=== PATIENT | male | born 1945 | race Asian ===

== ENCOUNTER → 2017-01-24 | Outpatient (CLI) | payer OTHER | LOC: BHFA 09:30 | PROVIDERS: ATTEND Internal Medicine Cardiovascular Disease | DX: I25.10 Atherosclerotic heart disease of native coronary artery without angina pectoris (principal) | CPT/HCPCS: 78452; 93017; A9500 ==

== ENCOUNTER → 2017-02-28 | Outpatient (CLI) | payer OTHER | DX: R13.10 Dysphagia, unspecified (principal); K21.9 Gastro-esophageal reflux disease without esophagitis; R09.89 Other specified symptoms and signs involving the circulatory and respiratory systems; R19.2 Visible peristalsis | CPT/HCPCS: 74220; 74230; 92611; G8996; G8997; G8998 ==

== ENCOUNTER → 2017-06-26 | Outpatient (CLI) | payer OTHER | LOC: BMCIMAGING 15:13 | PROVIDERS: ATTEND Internal Medicine | DX: R05 Cough (principal) ==

== ENCOUNTER → 2017-07-19 | Outpatient (CLI) | payer OTHER | LOC: FLAB 17:17 → EDSTATUS 17:28 → FIMAGING 17:29 | PROVIDERS: ATTEND Internal Medicine | DX: J18.9 Pneumonia, unspecified organism (principal) ==

== ENCOUNTER 2018-06-19 06:10 | Day surgery (SDC) | payer OTHER ==
[2018-06-19] MEDS ORDERED: DEXAMETHASONE 4 MG/ML VIAL IVP ONE (06:21)
[2018-06-19] MEDS ORDERED: ACETAMINOPHEN 325 MG TAB PO ONE (06:21)
[2018-06-19] MEDS ORDERED: ceFAZolin 2 GM/DEXTROSE 100 ML IV ONE (06:21)
[2018-06-19] MEDS ORDERED: FAMOTIDINE 20 MG TAB PO ONE (06:21)
--- NOTE | 2018-06-19 06:47 | PDANEPAE ---
ANE History of Present Illness meniscuc injury, here for knee scope ANE Past Medical History - Cardiovascular History Hx Hypertension: Yes Hx Arrhythmias: No Hx Chest Pain: No Hx Coronary Artery / Peripheral Vascular Disease: Yes Hx CHF / Valvular Disease: No Hx Palpitations: No Cardiovascular History Comment: stent placed 10yrs ago - Pulmonary History Hx COPD: No Hx Asthma/Reactive Airway Disease: No Hx Recent Upper Respiratory Infection: No Hx Oxygen in Use at Home: No Hx Sleep Apnea: No Sleep Apnea Screening Result - Last Documented: Negative - Neurologic History Hx Cerebrovascular Accident: No Hx Seizures: No Hx Dementia: No - Endocrine History Hx Diabetes: No - Renal History Hx Renal Disorders: No - Liver History Hx Hepatic Disorders: No - Neurological & Psychiatric Hx Hx Neurological and Psychiatric Disorders: No - Cancer History Hx Cancer: No - Congenital Disorder History Hx Congenital Disorders: No - GI History Hx Gastrointestinal Disorders: No - Other Health History Other Health History: none - Chronic Pain History Chronic Pain: Yes (right knee) - Surgical History Prior Surgeries: none ANE Review of Systems Review of Systems: - Exercise capacity METS (RN): 4 METS ANE Patient History - Allergies Allergies/Adverse Reactions: amoxicillin [From Augmentin] Allergy (Verified 06/18/18 14:15) Other-Enter Comments clavulanic acid [From Augmentin] Allergy (Verified 06/18/18 14:15) Other-Enter Comments - Home Medications Home medications: home medication list seen and reviewed Home Medications: Aspirin EC [Aspirin EC 81 mg (*)] 07/11/17 [Last Taken Unknown] Atorvastatin Calcium [Lipitor 20 mg (*)] 07/11/17 [Last Taken Unknown] Metoprolol Succinate Xr [Toprol Xl 25 mg (*)] 07/11/17 [Last Taken 06/18/18 22: 00] - NPO status NPO Status: no food or drink >8 hours - Anes Hx Anes Hx: slow to awaken from anesthesia - Smoking Hx Smoking Status: Former smoker - Alcohol Use Alcohol Use: None - Family Anes Hx Family Anes Hx: none Family Hx Anesthesia Complications: none ANE Labs/Vital Signs - Vital Signs Vital Signs: reviewed preoperatively; see RN documention for details Height: 165.1 cm Weight: 68.946 kg ANE Physical Exam - Airway Neck exam: FROM Mallampati Score: Class 2 Mouth exam: normal dental/mouth exam - Pulmonary Pulmonary: no respiratory distress, clear to auscultation - Cardiovascular Cardiovascular: regular rate and rhythym, no murmur, rub, or gallop - ASA Status ASA Status: II ANE Anesthesia Plan Anesthesia Plan: GA w LMA
[2018-06-19] MEDS ORDERED: BUPIVACAINE/EPI 0.5% 30 ML SDV ONE (06:49)
[2018-06-19] MEDS ORDERED: EPINEPHrine 1 MG/ML INJ ONE (06:49)
[2018-06-19] MEDS ORDERED: PROPOFOL 200 MG/20 ML VIAL ONE (06:53)
[2018-06-19] MEDS ORDERED: fentaNYL 100 MCG/2 ML INJ ONE ×2 (06:53→08:50)
[2018-06-19] MEDS ORDERED: LR 1,000 ML IV ONE (06:54)
[2018-06-19] MEDS ORDERED: LIDOCAINE 2% 100 MG/5 ML SYR ONE (06:55)
--- NOTE | 2018-06-19 07:06 | PDHPUP ---
History & Physical Update H&P update statement: This history and physical update is based on an assessment of the patient which was completed after admission or registration (within 24 hours), but prior to the surgery/procedure. H&P update: H&P reviewed & patient examined, no change in patient's condition since H&P completed
[2018-06-19] MEDS ORDERED: ePHEDrine SULFATE 25 MG/5 ML SYR ONE (07:37)
[2018-06-19] MEDS ORDERED: ONDANSETRON 4 MG/2 ML VIAL IVP PRN (08:08)
[2018-06-19] MEDS ORDERED: HYDROCODONE/APAP 5/325 TAB PO PRN (08:08)
[2018-06-19] MEDS ORDERED: ACETAMINOPHEN 500 MG TAB PO PRN (08:08)
[2018-06-19] MEDS ORDERED: fentaNYL 100 MCG/2 ML INJ IVP PRN (08:08)
[2018-06-19] MEDS ORDERED: oxyCODONE IR 5 MG TAB PO PRN (08:08)
[2018-06-19] MEDS ORDERED: NALOXONE HCL 0.4 MG/ML INJ IVP PRN (08:08)
[2018-06-19] MEDS ORDERED: PROMETHAZINE HCL 25 MG/ML INJ IVP PRN (08:08)
--- NOTE | 2018-06-19 08:08 | POSTANESTH ---
Post Anesthetic Evaluation Cardiovascular Status: Normal, Stable, Similar to Pre-Op Cond Respiratory Status: Normal, Stable, Similar to Pre-op Cond. Level of Consciousness/Mental Status: Mildly Sleepy, Arousable Pain Control: Adequate, Prn Tx Ordered Nausea/Vomiting Control: Adequate, Prn Tx Ordered Complications Possibly Related to Anesthesia: None Noted
--- NOTE | 2018-06-19 08:14 | POSTOPPROG ---
Post Op Note Date of Operation: 06/19/18 Surgeon: Izabella Lewis Anesthesiologist: dr. suh Anesthesia: GET(General Endotracheal) Pre-op Diagnosis: left knee medial meniscus tear Post-op Diagnosis: left knee meniscus tear and grade III and IV OA Indication: left knee pain and catching Procedure: Left knee scope Findings: meniscus tear and grade IV OA tibia Inf/Abcess present in the surg proc area at time of surgery?: No EBL: Minimal
[2018-06-19] MEDS ORDERED: HYDROCODONE/APAP 5/325 TAB ONE (09:59)
[2018-06-19 10:40] VITALS: BP 153/87
--- NOTE | 2018-06-25 15:46 | GOP ---
[f rep st] OPERATIVE REPORT DATE OF OPERATION: 06/19/2018 SURGEON: Tony Lewis MD ANESTHESIA: General. PREOPERATIVE DIAGNOSIS: Left knee medial meniscus tear. POSTOPERATIVE DIAGNOSIS: Left knee medial meniscus tear. PROCEDURE PERFORMED: Left knee arthroscopic partial medial meniscectomy. FINDINGS: INDICATIONS: Patient has a left medial meniscus tear noted on MRI and had tried injection and failed . Discussed risks, benefits were discussed with the patient and decided to proceed with operative in tervention. DESCRIPTION OF PROCEDURE: The patient identified in the preoperative holding area. His left lower e xtremity was marked, he was brought back to the operating room. After induction of anesthesia, he wa s prepped and draped in usual sterile fashion. A time-out was taken confirming patient, laterality, procedures, allergies, antibiotic status. We made medial and lateral parapatellar portals. Tourniqu et was inflated and I performed a diagnostic arthroscopy. The patient had no loose bodies in the sup rapatellar pouch. No loose bodies in the medial or lateral gutter. There was no significant cartila ge loss of the patellofemoral joint. At the medial femoral compartment there were some grade 2 carti rafi changes on the medial femoral condyle. There was grade 3-4 changes on the medial tibial, specif ically extreme medial under the meniscus. A posterior medial meniscus tear was noted. This was debr ided back to a stable rim using a series of cassandra and biters. This removed the meniscus tear. The notch was examined. The ACL, PCL were found to be intact. The lateral compartment was examined and found to have no osteoarthritis and no meniscus tear. Any excess fluid was removed. The incisions w ere closed in layers and the patient was placed in a sterile dressing and was brought to PACU in good condition with a well-perfused limb. The plan will be to discharge patient home, weightbearing as tolerated. Follow up in the orthopedic clinic in 7-10 days. /[id number]/MODL
== END 2018-06-19 10:34 | disposition home or self-care (01) ==
LOC: FSGY 06:10
PROVIDERS: ATTEND Orthopaedic Surgery
PROC: 0SBD4ZZ Excision of Left Knee Joint, Percutaneous Endoscopic Approach (ICD-10-PCS; principal; 2018-06-19 07:15)
DX: S83.222A Peripheral tear of medial meniscus, current injury, left knee, initial encounter (principal)
CPT/HCPCS: J0171; J0690; J1100; J2001; J2704; J3010

== ENCOUNTER → 2019-02-05 | Outpatient (CLI) | payer OTHER | LOC: BHFA 09:30 | PROVIDERS: ATTEND Internal Medicine Cardiovascular Disease | DX: Z01.810 Encounter for preprocedural cardiovascular examination (principal) | CPT/HCPCS: 78452; 93017; A9500; J2785 ==

== ENCOUNTER 2019-02-17 11:27 | Observation (INO) | payer OTHER ==
--- NOTE | 2019-02-16 16:58 | GHP ---
[f rep st] PREOP HISTORY AND PHYSICAL DATE OF ADMISSION: 02/17/2019 HISTORY: The patient is a 73-year-old male who has had progressive pain, swelling and limitations du e to left knee arthritis. His knee required a left knee arthroscopy, his knee has followed a downhil l course over time. He has tried steroid injection and viscosupplementation, as well as an certified professional midwife brace without benefit. He has pain, swelling, progressive limitation of his activities of daily nissa ng, limitations of motion and gait abnormalities. His left knee has radiographic abnormality, he has tricompartment osteoarthritis most severe in the medial compartment that is essentially [id number] and he has varus malalignment. He has had rheumatology consultation and has some elevation of infla mmatory markers demonstrating some inflammatory component to his knee symptoms. He has become limite d to the point where he would like to pursue a left total knee arthroplasty. PAST MEDICAL HISTORY: Remarkable for coronary artery disease, he had a stent placement 10 years ago, has been followed by Doctors Atul and Levon in Cardiology. He has had lumbar spine concerns an d injections. He has some elevation of cholesterol. His surgical history includes spine injections, a knee scope, left side. ALLERGIES: No known drug allergies. CURRENT MEDICATIONS: He is using atorvastatin 20 mg p.o. daily and metoprolol ER 25 mg p.o. daily. Former smoker, not currently. REVIEW OF SYSTEMS: Significant for his coronary artery disease. PHYSICAL EXAM: GENERAL: The patient is a well-developed, well-nourished male in no apparent distres s. HEAD AND NECK: Normocephalic, atraumatic. CHEST: Clear. CARDIOVASCULAR: Regular rate and rhy thm. ABDOMEN: Soft. NEUROLOGICAL: He is alert and oriented x3. EXTREMITIES: Examination of the left knee indicates an effusion. His extension is limited. His range of motion is from 10 degrees o f flexion to about 120 degrees of flexion. He has a varus malalignment. SKIN: Looks healthy. NEUR OVASCULAR: Exam appears intact. X-rays, as noted, show left knee tricompartment arthritis, severe joint space narrowing medially. IMPRESSION: Left knee arthritis. PLAN: A left total knee arthroplasty. Benefits and risks of surgery have been reviewed with the pat yang. He understands that the risks include infection, damage to blood vessel or nerve, failure or l oosening of components and possible need for revision. We have reviewed pain management strategies, as well as the rigorous nature of the recovery process. He has signed his consent form and wishes to proceed. /[id number]/MODL
[~2019-02-17 11:27] MED LIST: POVIDONE-IODINE 20 ML in SODIUM CL IRRIG SOLUTION 500 ML IRR ONE; ROPIVACAINE 0.2% 80 MG, EPINEPHrine 0.2 MG, KETOROLAC TROMETHAMINE 30 MG in SYRINGE 0 ML IU ONE; TRANEXAMIC ACID 1,000 MG in NS 100 ML IV ONE
[2019-02-17] MEDS ORDERED: DEXAMETHASONE 4 MG/ML VIAL IVP ONE (11:50)
[2019-02-17] MEDS ORDERED: GABAPENTIN 300 MG CAP PO ONE (11:50)
[2019-02-17] MEDS ORDERED: LR 1,000 ML IV ONE (11:50)
[2019-02-17] MEDS ORDERED: ceFAZolin 2 GM/DEXTROSE 100 ML IV ONE (11:50)
[2019-02-17] MEDS ORDERED: ACETAMINOPHEN 325 MG TAB PO ONE (11:50)
[2019-02-17] MEDS ORDERED: ONDANSETRON 4 MG/2 ML VIAL IVP ONE (11:50)
[2019-02-17] MEDS ORDERED: FAMOTIDINE 20 MG TAB PO ONE (11:50)
--- NOTE | 2019-02-17 12:19 | PDANEPAE ---
ANE Past Medical History - Cardiovascular History Hx Hypertension: No Hx Arrhythmias: No Hx Chest Pain: Yes Hx Coronary Artery / Peripheral Vascular Disease: Yes Hx CHF / Valvular Disease: No Hx Palpitations: No Cardiovascular History Comment: CAD, stent placed 10yrs ago. MD. HLD - Pulmonary History Hx COPD: No Hx Asthma/Reactive Airway Disease: No Hx Recent Upper Respiratory Infection: No Hx Oxygen in Use at Home: No Hx Sleep Apnea: No Sleep Apnea Screening Result - Last Documented: Negative - Neurologic History Hx Cerebrovascular Accident: No Hx Seizures: No Hx Dementia: No - Endocrine History Hx Diabetes: No Hypothyroid: No Hyperthyroid: No Obesity: no Endocrine History Comment: Pre-diabetic per PCP, managed by diet and excercise. - Renal History Hx Renal Disorders: No - Liver History Hx Hepatic Disorders: No - Neurological & Psychiatric Hx Hx Neurological and Psychiatric Disorders: No - Cancer History Hx Cancer: No - Congenital Disorder History Hx Congenital Disorders: No - GI History GERD: no Hx Gastrointestinal Disorders: No - Other Health History Other Health History: none - Chronic Pain History Chronic Pain: Yes (right knee) - Surgical History Prior Surgeries: L knee arthroscopy 06/2018. Angiogram 2017. Coronary artery stent ~2010. L knee surgery ~2003 ANE Review of Systems Review of Systems: - Exercise capacity Exercise capacity: >=4 METS, limited by disability METS (RN): 4 METS ANE Patient History - Allergies Allergies/Adverse Reactions: honey Allergy (Mild, Verified 02/11/19 11:53) Nausea lisinopril Allergy (Unknown, Verified 02/11/19 11:52) Hives amoxicillin [From Augmentin] Allergy (Verified 06/19/18 06:55) Other-Enter Comments clavulanic acid [From Augmentin] Allergy (Verified 06/19/18 06:55) Other-Enter Comments - Home Medications Home Medications: Atorvastatin Calcium [Lipitor 20 mg (*)] 07/11/17 [Last Taken 06/18/18] Metoprolol Succinate Xr [Toprol Xl 25 mg (*)] 07/11/17 [Last Taken 06/18/18] - NPO status NPO Since - Liquids (Date): 02/17/19 NPO Since - Liquids (Time): 09:00 NPO Since - Solids (Date): 02/16/19 NPO Since - Solids (Time): 21:00 - Anes Hx Anes Hx: slow to awaken from anesthesia - Smoking Hx Smoking Status: Former smoker Marijuana use: No - Alcohol Use Alcohol Use: Rarely - Family Anes Hx Family Anes Hx: neg - N/A Family Hx Anesthesia Complications: none ANE Labs/Vital Signs - Vital Signs Blood Pressure: 157/80 Heart Rate: 59 Respiratory Rate: 18 O2 Sat (%): 98 Height: 165.1 cm Weight: 70.307 kg ANE Physical Exam - Airway Neck exam: FROM Mallampati Score: Class 2 Mouth exam: normal dental/mouth exam - Pulmonary Pulmonary: no respiratory distress, no rales or rhonchi, clear to auscultation - Cardiovascular Cardiovascular: regular rate and rhythym - ASA Status ASA Status: II ANE Anesthesia Plan Anesthesia Plan: MAC, spinal Regional Anesthesia: single shot NB, adductor canal FNB Total IV Anesthesia: No
[2019-02-17] MEDS ORDERED: ceFAZolin 1 GM/5 ML SYR ONE (12:49)
--- NOTE | 2019-02-17 13:02 | PDHPUP ---
History & Physical Update H&P update statement: This history and physical update is based on an assessment of the patient which was completed after admission or registration (within 24 hours), but prior to the surgery/procedure. no change H&P update: no change in patient's condition since H&P completed (no change)
[2019-02-17] MEDS ORDERED: BUPIVACAINE/DEXTROSE 7.5MG/ML 2 ML SPINAL AMP SP ONE (13:24)
[2019-02-17] MEDS ORDERED: fentaNYL 100 MCG/2 ML INJ ONE (13:24)
[2019-02-17] MEDS ORDERED: PROPOFOL/EMULSION 500 MG/50 ML BOTTLE IV ONE ×2 (13:24→14:43)
[2019-02-17] MEDS ORDERED: ACETAMINOPHEN 500 MG TAB PO PRN (14:23)
[2019-02-17] MEDS ORDERED: HYDROCODONE/APAP 5/325 TAB PO PRN (14:23)
[2019-02-17] MEDS ORDERED: PROMETHAZINE HCL 25 MG/ML INJ IVP PRN ×2 (14:23→16:01)
[2019-02-17] MEDS ORDERED: PHENYLEPHRINE HCL 100 MCG/ML SYR IVP PRN (14:23)
[2019-02-17] MEDS ORDERED: fentaNYL 100 MCG/2 ML INJ IVP PRN (14:23)
[2019-02-17] MEDS ORDERED: ONDANSETRON 4 MG/2 ML VIAL IVP PRN ×2 (14:23→16:01)
[2019-02-17] MEDS ORDERED: LR 500 ML IV PRN (14:23)
[2019-02-17] MEDS ORDERED: NALOXONE HCL 0.4 MG/ML INJ IVP PRN (14:23)
[2019-02-17] MEDS ORDERED: ePHEDrine SULFATE 25 MG/5 ML SYR ONE (14:29)
[2019-02-17] MEDS ORDERED: ROPIVACAINE HCL 150 MG/30 ML INJ ONE (15:36)
[2019-02-17] MEDS ORDERED: oxyCODONE IR 5 MG TAB PO PRN (16:01)
[2019-02-17] MEDS ORDERED: BISACODYL 10 MG SUPP PR PRN (16:01)
[2019-02-17] MEDS ORDERED: ONDANSETRON DISINTEGRATING 4 MG TAB PO PRN (16:01)
[2019-02-17] MEDS ORDERED: DIPHENOXYLATE/ATROPINE LOMOTIL 1 TAB PO PRN (16:01)
[2019-02-17] MEDS ORDERED: POLYETHYLENE GLYCOL 3350 17 GM PKT PO PRN (16:01)
[2019-02-17] MEDS ORDERED: diphenhydrAMINE 25 MG CAP PO PRN (16:01)
[2019-02-17] MEDS ORDERED: PROMETHAZINE HCL 25 MG SUPPR PR PRN (16:01)
[2019-02-17] MEDS ORDERED: KETOROLAC 15 MG/1 ML SDV IVP ONE (16:01)
[2019-02-17] MEDS ORDERED: CYCLOBENZAPRINE 10 MG TAB PO PRN (16:01)
[2019-02-17] MEDS ORDERED: TEMAZEPAM 15 MG CAP PO PRN (16:01)
[2019-02-17] MEDS ORDERED: METOCLOPRAMIDE 10 MG/2 ML VIAL IVP PRN (16:01)
[2019-02-17] MEDS ORDERED: MAGNESIUM HYDROXIDE 30 ML UDCUP PO PRN (16:01)
[2019-02-17] MEDS ORDERED: LACTULOSE 20 GM/30 ML UDCUP PO PRN (16:01)
[2019-02-17] MEDS ORDERED: LR 1,000 ML IV SCH (16:30)
--- NOTE | 2019-02-17 16:33 | POSTANESTH ---
Post Anesthetic Evaluation Cardiovascular Status: Normal, Stable Respiratory Status: Normal, Stable Level of Consciousness/Mental Status: Can Participate in Eval Pain Control: Adequate, Prn Tx Ordered Nausea/Vomiting Control: Adequate, Prn Tx Ordered Complications Possibly Related to Anesthesia: None Noted
[2019-02-17] MEDS: SENNOSIDES/DOCUSATE SODIUM TAB PO SCH (21:05)
[2019-02-17] MEDS: FAMOTIDINE 20 MG TAB PO SCH (21:05)
[2019-02-17] MEDS: ASPIRIN 81 MG CHEWABLE TAB PO SCH (21:05)
[2019-02-17] MEDS: ACETAMINOPHEN 325 MG TAB PO SCH (21:52)
[2019-02-17] MEDS: ceFAZolin 2 GM/DEXTROSE 100 ML IV SCH (21:52)
[2019-02-18] MEDS: ACETAMINOPHEN 325 MG TAB PO SCH ×2 (03:13→11:01)
--- NOTE | 2019-02-18 05:18 | GOP ---
[f rep st] OPERATIVE REPORT DATE OF OPERATION: SURGEON: Ish Benítez MD MANUFACTURING PROCESS TECHNICIAN: [employer] ANESTHESIOLOGIST: Brandon Thomson DO PREOPERATIVE DIAGNOSIS: Left knee arthritis. POSTOPERATIVE DIAGNOSIS: Left knee arthritis. PROCEDURE PERFORMED: Left total knee arthroplasty. FINDINGS: SPECIMENS: Include excised bone. ESTIMATED BLOOD LOSS: About 30 cc. INDICATIONS: The patient is a 73-year-old male who has a severe left knee arthritis. There is likely inflammatory component to his arthritis. He has done appropriate conservative management of his knee arthritis, but he is essentially [id number] in the medial compartment, and his comfort and functio n are getting significantly compromised. He has elected to undergo a left total knee arthroplasty. DESCRIPTION OF PROCEDURE: The patient was taken to the operating room, and while seated on the OR ta ble received a spinal block by Dr. Thomson. Then received 2 g of IV Ancef, as well as tranexamic acid. He was placed supine. I neutralized his leg rotation, placed a tourniquet high on the left thig h, and the left knee was prepped and draped with chlorhexidine in the usual fashion. The limb was kassi vated, exsanguinated, tourniquet inflated to 275 mmHg. I made a longitudinal incision in the midline. I dissected down to the extensor mechanism and used a medial parapatellar arthrotomy. The patella wa s inverted, and I sized its thickness. I removed 9 mm of cartilage and bone, and sized the cut bone s urface to a 35 mm patellar component, and drilled peg holes. The trial component fit nicely, and re-e stablished the patellar thickness. The knee was then flexed. I drilled the workcell operator hole in the distal f emur and used an intramedullary device for alignment of the distal cut. He had a slight flexion contr acture, so I used a +2 cut, 5 degree valgus cut, and then sized the femur to a size 6. I used a cutti ng block to make the anterior, posterior and chamfer cuts, and the notch cuts for this bi-cruciate st abilized knee. I then addressed the tibia with an extramedullary guide. I set the rotation posterior slope and depth of cut. The tibial cut was made and I sized the tibial surface at a 5. With trial red uctions, I fine tuned the rotation, and completed the tibial prep. All the trial components were tatiana franklin, and all surfaces were jet lavaged with antibiotic solution and dried. All 3 components were ceme nted. The tibia is a size 5, the femur a size 6, and the patellar component 35 mm diameter. Once the cement had hardened I did trial reductions, and I chose a 10 mm thick articular insert. This allowed full extension, excellent roll back and flexion, appropriate soft tissue balance. I let the tournique t down after about 60 minutes. He received a second dose of tranexamic acid, and jet lavage irrigatio n, including a Betadine rinse. I closed the arthrotomy with interrupted [id number] sutures of 0 [place], I closed the skin with 2-0 Monocryl, and the skin with a running Quill suture in the subcu ticular space, and I applied some tissue glue, some Steri-Strips, 4x4s, sterile Webril, and a POOL sto cking, and an Jasiel wrap. There were no complications. DRAINS: None. COUNTS: All counts were correct. The patient was taken in stable condition to recovery. My furniture removalist's assistant was a medical necessity for leg positioning and soft tissue retraction. SUMMARY OF COMPONENTS: This is a [employer] knee. It is bi-cruciate stabilized and a ll components cemented. The femur is Oxinium. The femur is size 6, the tibia size 5, the patellar com ponent 35 mm in diameter, and the articular insert of crosslink poly is 10 mm thick. /[id number]/MODL
[2019-02-18] MEDS: ceFAZolin 2 GM/DEXTROSE 100 ML IV SCH (06:02)
[2019-02-18 08:08] VITALS: BP 147/77
--- NOTE | 2019-02-18 08:10 | SOAPPROG ---
SOAP Progress Note Assessment/Plan: Assessment: 02/18/19 POD#1 l TKA, pain controlled, xray fine Plan: 02/18/19 08:09 PT and home, oxy, tyl,celebrex,asa Objective: Vital Signs Temp Pulse Resp BP Pulse Ox 36.6 C 73 14 147/77 H 93 02/18/19 08:00 02/18/19 08:00 02/18/19 08:00 02/18/19 08:00 02/18/19 08:00 Laboratory Results 02/18/19 04:50 02/17/19 02/18/19 02/19/19 05:59 05:59 05:59 Intake Total 1530 Output Total 600 Balance 930 ICD10 Worksheet Patient Problems: Problems Problem Status Onset Chest pain Acute Meniscus, medial, derangement Acute Tear of meniscus of left knee Acute
[2019-02-18] MEDS: SENNOSIDES/DOCUSATE SODIUM TAB PO SCH (08:15)
[2019-02-18] MEDS: ASPIRIN 81 MG CHEWABLE TAB PO SCH (08:16)
[2019-02-18] MEDS: FAMOTIDINE 20 MG TAB PO SCH (08:16)
--- NOTE | 2019-02-18 14:07 | ASMTLACE ---
LACE Length of stay for Answers: 2 days current admission Acuity / Level of Answers: No Care: Did the patient have an inpatient admission? Comorbidities - select Answers: Coronary Artery Disease all that apply Opioid dependence / Chronic pain Previous myocardial infarction Other Notes: HLD # of Emergency department Answers: 0 visits in the last 6 months Score: 10 Date Signed: 02/18/2019 02:05 PM Electronically Signed By:VICKI Norton
--- NOTE | 2019-02-18 14:08 | ASMTCMCOM ---
CM Note CM Note Notes: Pt had planned knee surgery, resides with spouse. PT rec home/outpatient. Pt medically stable for d/c. No CM d/c needs identified. Date Signed: 02/18/2019 02:06 PM Electronically Signed By:VICKI Norton
== END 2019-02-18 11:40 | disposition home or self-care (01) ==
LOC: F3N 11:27
PROVIDERS: ADMIT Orthopaedic Surgery; ATTEND Orthopaedic Surgery
PROC: 0SRD0J9 Replacement of Left Knee Joint with Synthetic Substitute, Cemented, Open Approach (ICD-10-PCS; principal; 2019-02-17 12:15)
DX: M17.12 Unilateral primary osteoarthritis, left knee (principal); I25.10 Atherosclerotic heart disease of native coronary artery without angina pectoris; E78.5 Hyperlipidemia, unspecified; N40.0 Benign prostatic hyperplasia without lower urinary tract symptoms; R73.03 Prediabetes; E66.3 Overweight; Z79.82 Long term (current) use of aspirin; Z87.891 Personal history of nicotine dependence; Z82.49 Family history of ischemic heart disease and other diseases of the circulatory system; Z95.5 Presence of coronary angioplasty implant and graft
CPT/HCPCS: 27447; 73560; 88311; 97110; 97161; 97165; C1713; C1776; J0171; J0690; J1100; J1885; J2405; J2704; J2795; J3010

== ENCOUNTER → 2019-03-05 | Outpatient (CLI) | payer OTHER | LOC: FIMAGING 09:37 | PROVIDERS: ATTEND Orthopaedic Surgery | DX: R22.42 Localized swelling, mass and lump, left lower limb (principal) ==